=== PATIENT | female | born 1975 ===

== ENCOUNTER → 2021-03-27 | Outpatient (CLI) | payer OTHER ==
--- NOTE | 2021-03-27 08:52 | RAD ---
EXAM: Pelvic sonogram. HISTORY: Pelvic pain. Fibroids. TECHNIQUE: Transvaginal sonographic imaging of the pelvis was performed. COMPARISON: None. FINDINGS: The uterus measures 8.5 x 4.8 x 4.5 cm. The endometrial stripe measures 4 mm in thickness. The myometrium appears to be hypervascular with superimposed heterogeneous mass within the anterior u terine fundus measuring 1.8 x 1.7 x 1.5 cm. There are nabothian cysts containing debris within the ce rvix. The ovaries are normal in size and demonstrate normal blood flow. There is a 7 mm left ovarian follicle. There is no pelvic free fluid. IMPRESSION: 1.Hypervascular myometrium with superimposed 1.8 cm mass likely representing a hypervascular fibroid within the anterior uterine fundus. The uterus is normal in size. 2. No suspicious ovarian lesion or pelvic free fluid. Electronically signed by: Reena Hylton MD (03/27/2021 8:49 AM) [id number]
== END ==
LOC: US 07:41
PROVIDERS: ATTEND Clinical Nurse Specialist Family Health
DX: N88.8 Other specified noninflammatory disorders of cervix uteri (principal); D25.9 Leiomyoma of uterus, unspecified
CPT/HCPCS: 76830